=== PATIENT | female | born 1975 | race Caucasian/White ===

== ENCOUNTER 2017-09-11 09:32 | Emergency (ER) | payer MEDICARE, MEDICAID ==
[2017-09-11] MEDS ORDERED: Morphine 10 MG/ML Syringe IM ONE (10:10)
[2017-09-11] MEDS ORDERED: Cyclobenzaprine 10 MG Tab PO ONE (10:11)
[2017-09-11] MEDS ORDERED: Morphine 10 MG/ML Syringe ONE (10:15)
[2017-09-11] MEDS ORDERED: Cyclobenzaprine 10 MG Tab ONE (10:16)
--- NOTE | 2017-09-11 10:18 | EDM.PDOC ---
ED HPI GENERAL MEDICAL PROBLEM - General Chief Complaint: Back Pain or Injury Stated Complaint: BACK PAIN Time Seen by Provider: 09/11/17 09:38 Source of Information: Reports: Patient History Limitations: Reports: No Limitations - History of Present Illness INITIAL COMMENTS - FREE TEXT/NARRATIVE: History of present illness: []Patient was watching a parade yesterday and standing when she felt sudden sharp pain in her low back. She took Tylenol when she got home at noon and took a hot bath. Her dose of Tylenol prior to bed and awoke with worsening pain. She denies any numbness tingling, pain radiating down her legs or urinary incontinence. Review of systems: As per history of present illness and below otherwise all systems reviewed and negative. Past medical history: As per history of present illness and as reviewed below otherwise noncontributory. Surgical history: As per history of present illness and as reviewed below otherwise noncontributory. Social history: No reported history of drug or alcohol abuse. Family history: As per history of present illness and as reviewed below otherwise noncontributory. Physical exam: General: Well developed, well nourished in NAD HEENT: Atraumatic, normocephalic, pupils reactive, negative for conjunctival pallor or scleral icterus, mucous membranes moist, throat clear, neck supple, nontender, trachea midline. Lungs: Clear to auscultation, breath sounds equal bilaterally, chest nontender. Heart: S1S2, regular, negative for clicks, rubs, or JVD. Abdomen: Soft, nondistended, nontender. Negative for masses or hepatosplenomegaly. Negative for costovertebral tenderness. Pelvis: Stable nontender. Genitourinary: Deferred. Rectal: Deferred. Extremities: Atraumatic, negative for cords or calf pain. Neurovascular unremarkable. Neuro: Awake, alert, oriented. Cranial nerves II through XII unremarkable. Cerebellum unremarkable. Motor and sensory unremarkable throughout. Exam nonfocal. Back: Tenderness throughout her lower back though specific vertebral tenderness. Diagnostics: [] Therapeutics: []Morphine and Flexeril Impression: []Lumbar strain Plan: []Diclofenac Flexeril, ice to back follow-up with primary care as needed. Definitive disposition and diagnosis as appropriate pending reevaluation and review of above. lower back Pain Score (Numeric/FACES): 10 - Related Data Allergies Allergy/AdvReac Type Severity Reaction Status Date / Time ketorolac [From Toradol] Allergy Airway Verified 09/11/17 09:41 Tightness pentazocine [From Talwin] Allergy Airway Verified 09/11/17 09:41 Tightness tigecycline Allergy Hives Verified 09/11/17 09:41 tramadol Allergy Airway Verified 09/11/17 09:41 Tightness Home Meds: Home Meds Albuterol Sulfate [Proair Hfa] 1 dose INH ASDIRECTED PRN 09/11/17 [History] Budesonide/Formoterol Fumarate [Symbicort 160-4.5 Mcg Inhaler] 1 inh PO ASDIRECTED PRN 09/11/17 [History] Cyclobenzaprine [Flexeril] 10 mg PO BID PRN #12 tab 09/11/17 [Rx] Diclofenac Sodium [IJD: Diclofenac Sodium] 75 mg PO .TWICE DAILY W MEALS PRN # 20 tab.ec 09/11/17 [Rx] Past Medical History HEENT History: Reports: Impaired Vision Cardiovascular History: Reports: Other (See Below) 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 Respiratory History: Reports: Asthma Gastrointestinal History: Reports: None Genitourinary History: Reports: None 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: Musculoskeletal History: Reports: Back Pain, Chronic Neurological History: Reports: Other (See Below) Other Neuro History: Epilipsy Psychiatric History: Reports: None Endocrine/Metabolic History: Reports: None Hematologic History: Reports: None Immunologic History: Reports: None Oncologic (Cancer) History: Reports: None Dermatologic History: Reports: None - Infectious Disease History Infectious Disease History: Reports: Chicken Pox - Past Surgical History Head Surgeries/Procedures: Reports: None HEENT Surgical History: Reports: None Cardiovascular Surgical History: Reports: None Respiratory Surgical History: Reports: None GI Surgical History: Reports: None Female Surgical History: Reports: Section Endocrine Surgical History: Reports: None Neurological Surgical History: Reports: None Musculoskeletal Surgical History: Reports: Other (See Below) Oncologic Surgical History: Reports: None Dermatological Surgical History: Reports: None Social & Family History - Family History Family Medical History: Noncontributory - Tobacco Use Smoking Status *Q: Never Smoker Second Hand Smoke Exposure: Yes - Caffeine Use Caffeine Use: Reports: Coffee, Soda - Recreational Drug Use Recreational Drug Use: No ED ROS GENERAL - Review of Systems Review Of Systems: See Below (See history of present illness) ED EXAM,LOWER BACK PAIN/INJURY - Physical Exam Exam: See Below (See history of present illness) Course - Vital Signs Last Recorded V/S: Last Vital Signs Temp 97.3 F 09/11/17 09:43 Pulse 83 09/11/17 09:43 Resp 22 H 09/11/17 09:43 BP 144/74 H 09/11/17 09:43 Pulse Ox 99 09/11/17 09:43 - Orders/Labs/Meds Meds: Medications Discontinued Medications Generic Name Dose Route Start Last Admin Trade Name Freq PRN Reason Stop Dose Admin Cyclobenzaprine HCl 10 mg 09/11/17 10:11 09/11/17 10:18 Flexeril PO 09/11/17 10:12 10 mg ONETIME ONE Administration Cyclobenzaprine HCl Confirm 09/11/17 10:16 Flexeril Administered 09/11/17 10:17 Dose 10 mg .ROUTE .STK-MED ONE Morphine Sulfate 6 mg 09/11/17 10:10 09/11/17 10:18 Morphine IM 09/11/17 10:11 6 mg ONETIME ONE Administration Morphine Sulfate Confirm 09/11/17 10:15 Morphine Administered 09/11/17 10:16 Dose 10 mg .ROUTE .STK-MED ONE Departure - Departure Time of Disposition: 10:51 Disposition: Home, Self-Care 01 Condition: Good Clinical Impression: Lumbar strain Qualifiers: Encounter type: initial encounter Qualified Code(s): S39.012A - Strain of muscle, fascia and tendon of lower back, initial encounter - Discharge Information Prescriptions: Cyclobenzaprine [Flexeril] 10 mg PO BID PRN #12 tab PRN Reason: Pain Diclofenac Sodium [IJD: Diclofenac Sodium] 75 mg PO .TWICE DAILY W MEALS PRN # 20 tab.ec PRN Reason: Pain Referrals: PCP,Unknown [Primary Care Provider] - Forms: ED Department Discharge Additional Instructions: The following information is given to patients seen in the emergency department who are being discharged to home. This information is to outline your options for follow-up care. We provide all patients seen in our emergency department with a follow-up referral. The need for follow-up, as well as the timing and circumstances, are variable depending upon the specifics of your emergency department visit. If you don't have a primary care physician on staff, we will provide you with a referral. We always advise you to contact your personal physician following an emergency department visit to inform them of the circumstance of the visit and for follow-up with them and/or the need for any referrals to a consulting specialist. The emergency department will also refer you to a specialist when appropriate. This referral assures that you have the opportunity for follow-up care with a specialist. All of these measure are taken in an effort to provide you with optimal care, which includes your follow-up. Under all circumstances we always encourage you to contact your private physician who remains a resource for coordinating your care. When calling for follow-up care, please make the office aware that this follow-up is from your recent emergency room visit. If for any reason you are refused follow-up, please contact the [facility] Emergency Department at and asked to speak to the emergency department charge nurse. Flexeril, diclofenac, ice your back follow-up with primary care request physical therapy.
== END 2017-09-11 11:01 | disposition home or self-care (01) ==
LOC: MW.ED 09:32
DX: S39.012A Strain of muscle, fascia and tendon of lower back, initial encounter (principal); Z88.6 Allergy status to analgesic agent; Z88.5 Allergy status to narcotic agent; Z88.1 Allergy status to other antibiotic agents; X58.XXXA Exposure to other specified factors, initial encounter
CPT/HCPCS: 96372; 99283; A9270; J2270

== ENCOUNTER 2020-10-21 21:38 | Emergency (ER) | payer MEDICARE, MEDICAID ==
[2020-10-21] MEDS ORDERED: Sodium Chloride 0.9% 2.5 ML Syringe FLUSH PRN (21:49)
[2020-10-21] MEDS ORDERED: Sodium Chloride 0.9% 10 ML Syringe FLUSH PRN (21:49)
[2020-10-21] MEDS ORDERED: Sodium Chloride 0.9% 1,000 ML IV ONE (21:51)
[2020-10-21] MEDS ORDERED: Ondansetron 4 MG/2 ML SDV IVPUSH ONE (21:52)
--- NOTE | 2020-10-21 21:54 | EDM.PDOC ---
ED HPI GENERAL MEDICAL PROBLEM - General Chief Complaint: Back Pain or Injury Stated Complaint: BACK PAIN Time Seen by Provider: 10/21/20 21:44 - History of Present Illness INITIAL COMMENTS - FREE TEXT/NARRATIVE: History of present illness: [] Patient had back pain started 7 AM yesterday with nausea starting at 730. She vomited twice since. Its constant severe pain in the low back. It radiates to the anterior abdomen and across the abdomen. It radiates from the left hip to the right hip. Both hips are involved. She is not sure if she is . She has no systemic signs of infection. Review of systems: As per history of present illness and below otherwise all systems reviewed and negative. Past medical history: As per history of present illness and as reviewed below otherwise noncontributory. Surgical history: As per history of present illness and as reviewed below otherwise noncontributory. Social history: No reported history of drug or alcohol abuse. Family history: As per history of present illness and as reviewed below otherwise noncontributory. Physical exam: Constitutional - well developed, well-nourished and in no acute distress HEENT - normocephalic, no evidence of trauma - external nose and mouth normal - no mass in neck and no JVD - mucosae moist EYES - full EOM, PERRL, no icterus - no evidence of inflammation, injection, or drainage Respiratory - no respiratory distress, equal bilateral expansion, lungs clear to auscultation and no abnormal lung sounds Cardiovascular - Regular Rhythm with S1 and S2 appreciated and no murmur, gallop or rub. GI - abdomen soft without distension or organomegaly - normal bowel sounds - no guard or rebound Musculoskeletal straight leg raise negative for radicular pain-tender in the lowest bed lumbar area-no gross deformity of long bones or joints - no tenderness, swelling or edema Neurologic - Alert and oriented times four - CN II-XII grossly intact - motor sensory and coordination symmetrically normal Psychiatric - appropriate mood and affect with normal thought content Hematologic - No petechiae or purpura - mucosa appropriate color and sclera not pale - normal nail bed color and refill Integument - no rash or evidence of trauma - normal turgor Diagnostics: [] Therapeutics: [] Impression: [] Plan: [] Definitive disposition and diagnosis as appropriate pending reevaluation and review of above. back pain Pain Score (Numeric/FACES): 10 - Related Data Allergies Allergy/AdvReac Type Severity Reaction Status Date / Time ketorolac [From Toradol] Allergy Airway Verified 10/21/20 21:43 Tightness pentazocine [From Talwin] Allergy Airway Verified 10/21/20 21:43 Tightness tigecycline Allergy Hives Verified 10/21/20 21:43 tramadol Allergy Airway Verified 10/21/20 21:43 Tightness Home Meds: Home Meds Albuterol Sulfate [Proair Hfa] 1 dose INH ASDIRECTED PRN 09/11/17 [History] Budesonide/Formoterol Fumarate [Symbicort 160-4.5 Mcg Inhaler] 1 inh PO ASDIRECTED PRN 09/11/17 [History] Past Medical History HEENT History: Reports: Impaired Vision Cardiovascular History: Reports: Other (See Below) 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 Respiratory History: Reports: Asthma Gastrointestinal History: Reports: None Genitourinary History: Reports: None 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: Musculoskeletal History: Reports: Back Pain, Chronic Neurological History: Reports: Other (See Below) Other Neuro History: Epilipsy Psychiatric History: Reports: None Endocrine/Metabolic History: Reports: None Hematologic History: Reports: None Immunologic History: Reports: None Oncologic (Cancer) History: Reports: None Dermatologic History: Reports: None - Infectious Disease History Infectious Disease History: Reports: Chicken Pox - Past Surgical History Head Surgeries/Procedures: Reports: None HEENT Surgical History: Reports: None Cardiovascular Surgical History: Reports: None Respiratory Surgical History: Reports: None GI Surgical History: Reports: None Female Surgical History: Reports: Section Endocrine Surgical History: Reports: None Neurological Surgical History: Reports: None Musculoskeletal Surgical History: Reports: Other (See Below) Oncologic Surgical History: Reports: None Dermatological Surgical History: Reports: None Social & Family History - Family History Family Medical History: No Pertinent Family History - Caffeine Use Caffeine Use: Reports: Coffee, Soda ED ROS GENERAL - Review of Systems Review Of Systems: Comprehensive ROS is negative, except as noted in HPI. ED EXAM, GENERAL - Physical Exam Exam: See Below Free Text/Narrative:: History of present illness: History of present illness: [] My history and physical is in the HPI Review of systems: As per history of present illness and below otherwise all systems reviewed and negative. Past medical history: As per history of present illness and as reviewed below otherwise noncontributory. Surgical history: As per history of present illness and as reviewed below otherwise noncontributory. Social history: No reported history of drug or alcohol abuse. Family history: As per history of present illness and as reviewed below otherwise noncontributory. Physical exam: Constitutional - well developed, well-nourished and in no acute distress HEENT - normocephalic, no evidence of trauma - external nose and mouth normal - no mass in neck and no JVD - mucosae moist EYES - full EOM, PERRL, no icterus - no evidence of inflammation, injection, or drainage Respiratory - no respiratory distress, equal bilateral expansion, lungs clear to auscultation and no abnormal lung sounds Cardiovascular - Regular Rhythm with S1 and S2 appreciated and no murmur, gallop or rub. GI - abdomen soft without distension or organomegaly - normal bowel sounds - no guard or rebound Musculoskeletal no gross deformity of long bones or joints - no tenderness, swelling or edema Neurologic - Alert and oriented times four - CN II-XII grossly intact - motor sensory and coordination symmetrically normal Psychiatric - appropriate mood and affect with normal thought content Hematologic - No petechiae or purpura - mucosa appropriate color and sclera not pale - normal nail bed color and refill Integument - no rash or evidence of trauma - normal turgor Diagnostics: [] Therapeutics: [] Impression: [] Plan: [] Definitive disposition and diagnosis as appropriate pending reevaluation and review of above. Is in the HPI Review of systems: As per history of present illness and below otherwise all systems reviewed and negative. Past medical history: As per history of present illness and as reviewed below otherwise noncontributory. Surgical history: As per history of present illness and as reviewed below otherwise noncontributory. Social history: No reported history of drug or alcohol abuse. Family history: As per history of present illness and as reviewed below otherwise noncontributory. Physical exam: Constitutional - well developed, well-nourished and in no acute distress HEENT - normocephalic, no evidence of trauma - external nose and mouth normal - no mass in neck and no JVD - mucosae moist EYES - full EOM, PERRL, no icterus - no evidence of inflammation, injection, or drainage Respiratory - no respiratory distress, equal bilateral expansion, lungs clear to auscultation and no abnormal lung sounds Cardiovascular - Regular Rhythm with S1 and S2 appreciated and no murmur, gallop or rub. GI - abdomen soft without distension or organomegaly - normal bowel sounds - no guard or rebound Musculoskeletal no gross deformity of long bones or joints - no tenderness, swelling or edema Neurologic - Alert and oriented times four - CN II-XII grossly intact - motor sensory and coordination symmetrically normal Psychiatric - appropriate mood and affect with normal thought content Hematologic - No petechiae or purpura - mucosa appropriate color and sclera not pale - normal nail bed color and refill Integument - no rash or evidence of trauma - normal turgor Diagnostics: [] Therapeutics: [] Impression: [] Plan: [] Definitive disposition and diagnosis as appropriate pending reevaluation and review of above. Course - Vital Signs Text/Narrative:: 0156 hrs. patient turned out to have an infection and obstructing proximal stone in the ureter. Discussed with Dr. Upton and Chinyere and she wants the patient transferred for stenting. Discussed with Dr. Epps he accepted the patient. Last Recorded V/S: Last Vital Signs Temp 37.7 C 10/22/20 01:54 Pulse 112 H 10/22/20 01:54 Resp 18 10/22/20 01:54 BP 112/66 10/22/20 01:54 Pulse Ox 97 10/22/20 01:54 - Orders/Labs/Meds Orders: Active Orders 24 hr Category Date Time Status CULTURE URINE [MREF] Stat Lab 10/22/20 00:00 Received Sodium Chloride 0.9% [Saline Flush] Med 10/21/20 21:49 Active 10 ml FLUSH ASDIRECTED PRN Sodium Chloride 0.9% [Saline Flush] Med 10/21/20 21:49 Active 2.5 ml FLUSH ASDIRECTED PRN Saline Lock Insert [OM.PC] Stat Oth 10/21/20 21:50 Ordered Medication Orders Sodium Chloride (Sodium Chloride 0.9% 10 Ml Syringe) 10 ml FLUSH ASDIRECTED PRN PRN Reason: Keep Vein Open Last Admin: 10/21/20 22:55 Dose: 10 ml Documented by: HILDA Sodium Chloride (Sodium Chloride 0.9% 2.5 Ml Syringe) 2.5 ml FLUSH ASDIRECTED PRN PRN Reason: Keep Vein Open Last Admin: 10/21/20 22:55 Dose: 2.5 ml Documented by: HILDA Labs: Laboratory Tests 10/21/20 10/21/20 10/21/20 Range/Units 22:07 22:07 22:07 WBC 12.74 H (4.0-11.0) K/uL RBC 4.58 (4.30-5.90) M/uL Hgb 13.7 (12.0-16.0) g/dL Hct 39.9 (36.0-46.0) % MCV 87.1 (80.0-98.0) fL MCH 29.9 (27.0-32.0) pg MCHC 34.3 (31.0-37.0) g/dL RDW Std Deviation 41.8 (28.0-62.0) fl RDW Coeff of Yakelin 13 (11.0-15.0) % Plt Count 289 (150-400) K/uL MPV 9.60 (7.40-12.00) fL Neut % (Auto) 87.5 H (48.0-80.0) % Lymph % (Auto) 5.4 L (16.0-40.0) % [place] % (Auto) 6.7 (0.0-15.0) % Eos % (Auto) 0.2 (0.0-7.0) % Baso % (Auto) 0.2 (0.0-1.5) % Neut # (Auto) 11.2 H (1.4-5.7) K/uL Lymph # (Auto) 0.7 (0.6-2.4) K/uL Marathon # (Auto) 0.9 H (0.0-0.8) K/uL Eos # (Auto) 0.0 (0.0-0.7) K/uL Baso # (Auto) 0.0 (0.0-0.1) K/uL Nucleated RBC % 0.0 /100WBC Nucleated RBCs # 0 K/uL Sodium 136 (136-145) mmol/L Potassium 3.7 (3.5-5.1) mmol/L Chloride 99 (98-107) mmol/L Carbon Dioxide 26.5 (21.0-32.0) mmol/L BUN 11 (7.0-18.0) mg/dL Creatinine 1.0 (0.6-1.0) mg/dL Est Cr Clr Drug Dosing 67.63 mL/min Estimated GFR (MDRD) 59.4 ml/min Glucose 117 H (74-106) mg/dL Calcium 8.7 (8.5-10.1) mg/dL Total Bilirubin 1.0 (0.2-1.0) mg/dL AST 13 L (15-37) IU/L ALT 21 (14-63) IU/L Alkaline Phosphatase 74 (46-116) U/L Total Protein 7.8 (6.4-8.2) g/dL Albumin 3.5 (3.4-5.0) g/dL Globulin 4.3 H (2.6-4.0) g/dL Albumin/Globulin Ratio 0.8 L (0.9-1.6) Lipase 40 L (73-393) U/L HCG, Qual NEGATIVE (NEG) Urine Color Urine Appearance Urine pH (5.0-8.0) Ur Specific [place] (1.001-1.035) Urine Protein (NEGATIVE) mg/dL Urine Glucose (UA) (NEGATIVE) mg/dL Urine Ketones (NEGATIVE) mg/dL Urine Occult Blood (NEGATIVE) Urine Nitrite (NEGATIVE) Urine Bilirubin (NEGATIVE) Urine Urobilinogen (<2.0) EU/dL Ur Leukocyte Esterase (NEGATIVE) Urine RBC (0-2/HPF) Urine WBC (0-5/HPF) Ur Epithelial Cells (NONE-FEW) Urine Bacteria (NEGATIVE) Urine Mucus (NONE-MOD) 10/21/20 Range/Units 23:44 WBC (4.0-11.0) K/uL RBC (4.30-5.90) M/uL Hgb (12.0-16.0) g/dL Hct (36.0-46.0) % MCV (80.0-98.0) fL MCH (27.0-32.0) pg MCHC (31.0-37.0) g/dL RDW Std Deviation (28.0-62.0) fl RDW Coeff of Yakelin (11.0-15.0) % Plt Count (150-400) K/uL MPV (7.40-12.00) fL Neut % (Auto) (48.0-80.0) % Lymph % (Auto) (16.0-40.0) % Marathon % (Auto) (0.0-15.0) % Eos % (Auto) (0.0-7.0) % Baso % (Auto) (0.0-1.5) % Neut # (Auto) (1.4-5.7) K/uL Lymph # (Auto) (0.6-2.4) K/uL Marathon # (Auto) (0.0-0.8) K/uL Eos # (Auto) (0.0-0.7) K/uL Baso # (Auto) (0.0-0.1) K/uL Nucleated RBC % /100WBC Nucleated RBCs # K/uL Sodium (136-145) mmol/L Potassium (3.5-5.1) mmol/L Chloride (98-107) mmol/L Carbon Dioxide (21.0-32.0) mmol/L BUN (7.0-18.0) mg/dL Creatinine (0.6-1.0) mg/dL Est Cr Clr Drug Dosing mL/min Estimated GFR (MDRD) ml/min Glucose (74-106) mg/dL Calcium (8.5-10.1) mg/dL Total Bilirubin (0.2-1.0) mg/dL AST (15-37) IU/L ALT (14-63) IU/L Alkaline Phosphatase (46-116) U/L Total Protein (6.4-8.2) g/dL Albumin (3.4-5.0) g/dL Globulin (2.6-4.0) g/dL Albumin/Globulin Ratio (0.9-1.6) Lipase (73-393) U/L HCG, Qual (NEG) Urine Color YELLOW Urine Appearance SLT CLOUDY Urine pH 7.0 (5.0-8.0) Ur Specific [place] 1.015 (1.001-1.035) Urine Protein 30 H (NEGATIVE) mg/dL Urine Glucose (UA) NEGATIVE (NEGATIVE) mg/dL Urine Ketones 40 H (NEGATIVE) mg/dL Urine Occult Blood TRACE-LYSED H (NEGATIVE) Urine Nitrite POSITIVE H (NEGATIVE) Urine Bilirubin NEGATIVE (NEGATIVE) Urine Urobilinogen 4.0 H (<2.0) EU/dL Ur Leukocyte Esterase MODERATE H (NEGATIVE) Urine RBC 1-3 (0-2/HPF) Urine WBC 10-20 (0-5/HPF) Ur Epithelial Cells FEW (NONE-FEW) Urine Bacteria 3+ H (NEGATIVE) Urine Mucus LIGHT (NONE-MOD) Meds: Medications Generic Name Dose Route Start Last Admin Trade Name Freq PRN Reason Stop Dose Admin Sodium Chloride 10 ml 10/21/20 21:49 10/21/20 22:55 Sodium Chloride 0.9% 10 Ml Syringe FLUSH 10 ml ASDIRECTED PRN Administration Keep Vein Open Sodium Chloride 2.5 ml 10/21/20 21:49 10/21/20 22:55 Sodium Chloride 0.9% 2.5 Ml Syringe FLUSH 2.5 ml ASDIRECTED PRN Administration Keep Vein Open Discontinued Medications Generic Name Dose Route Start Last Admin Trade Name Freq PRN Reason Stop Dose Admin Diazepam 5 mg 10/21/20 23:37 10/22/20 00:23 Diazepam 2 Mg Tab PO 10/21/20 23:38 5 mg ONETIME ONE Administration Sodium Chloride 1,000 mls @ 1,000 mls/hr 10/21/20 21:51 10/21/20 22:19 Normal Saline IV 10/21/20 22:50 1,000 mls/hr .Bolus ONE Administration Ceftriaxone Sodium/Dextrose 1 50 mls @ 100 mls/hr 10/22/20 01:02 10/22/20 01:13 gm/ Premix IV 10/22/20 01:31 100 mls/hr ONETIME ONE Administration Morphine Sulfate 4 mg 10/21/20 22:41 10/21/20 22:55 Morphine 4 Mg/Ml Syringe IVPUSH 10/21/20 22:42 4 mg ONETIME ONE Administration Ondansetron HCl 4 mg 10/21/20 21:52 10/21/20 22:21 Ondansetron 4 Mg/2 Ml Sdv IVPUSH 10/21/20 21:53 4 mg ONETIME ONE Administration Oxycodone/Acetaminophen 1 tab 10/21/20 23:37 10/22/20 00:25 Acetaminophen/Oxycodone 325-10 Mg Tab PO 10/21/20 23:38 1 tab ONETIME ONE Administration Departure - Departure Time of Disposition: 01:57 Disposition: DC/Tfer to Acute Hospital 02 Condition: Good Clinical Impression: Ureteral stone with hydronephrosis, UTI (urinary tract infection) - Discharge Information Forms: ED Department Discharge Additional Instructions: You have been accepted for care by the emergency physician Dr. Epps and the urologist Dr. Upton in [place]. Please have someone drive you safely there. Sepsis Event Note (ED) - Evaluation Sepsis Screening Result: No Definite Risk - Focused Exam Vital Signs: Vital Signs Temp Pulse Resp BP Pulse Ox 10/22/20 01:54 37.7 C 112 H 18 112/66 97 10/22/20 01:15 36.9 C 108 H 18 111/71 95 10/21/20 23:00 112 H 18 116/72 95 10/21/20 21:40 36.4 C 120 H 18 130/70 97 - My Orders Last 24 Hours: My Active Orders 10/21/20 21:49 Sodium Chloride 0.9% [Saline Flush] 10 ml FLUSH ASDIRECTED PRN Sodium Chloride 0.9% [Saline Flush] 2.5 ml FLUSH ASDIRECTED PRN 10/21/20 21:50 Saline Lock Insert [OM.PC] Stat 10/22/20 00:00 CULTURE URINE [MREF] Stat - Assessment/Plan Last 24 Hours: My Active Orders 10/21/20 21:49 Sodium Chloride 0.9% [Saline Flush] 10 ml FLUSH ASDIRECTED PRN Sodium Chloride 0.9% [Saline Flush] 2.5 ml FLUSH ASDIRECTED PRN 10/21/20 21:50 Saline Lock Insert [OM.PC] Stat 10/22/20 00:00 CULTURE URINE [MREF] Stat
[2020-10-21 22:35] LABS: CARBON DIOXIDE,CO2 26.5 mmol/L (21.0-32.0); POTASSIUM,K 3.7 mmol/L (3.5-5.1)
[2020-10-21] MEDS ORDERED: Morphine 4 MG/ML Syringe IVPUSH ONE (22:41)
[2020-10-21] MEDS ORDERED: Acetaminophen/oxyCODONE 325-10 MG Tab PO ONE (23:37)
[2020-10-21] MEDS ORDERED: Diazepam 2 MG Tab PO ONE (23:37)
--- NOTE | 2020-10-22 00:43 | CT ---
INDICATION: Left flank pain TECHNIQUE: CT abdomen and pelvis without contrast. COMPARISON: None available FINDINGS: Lower chest: Mild mosaic attenuation, probably related to minor compressive changes with foci of air trapping. A small hiatal hernia. Liver: Hepatic steatosis. Spleen: Mild splenomegaly measuring 14 cm craniocaudally. Pancreas: Unremarkable. Gallbladder and bile ducts: A moderately distended gallbladder. Adrenal glands: Unremarkable. Kidneys: Mild left hydronephrosis with a 6 x 4 mm calculus in the proximal to mid ureter at the L4 level. GI tract: Unremarkable. Appendix is normal. Vascular structures: Unremarkable. Lymph nodes: Unremarkable. Miscellaneous: No significant free fluid or free air. A small fat containing umbilical hernia. Pelvic Organs: Probably physiologic prominence of the uterine endometrium. Small uterine fundal lobulations could represent myomatous changes. No bladder calcifications. Bones: Unremarkable for age. IMPRESSION: Mild left obstructive uropathy due to a 6 mm proximal to mid ureteral calculus. Hepatic steatosis, mild splenomegaly. Please note that all CT scans at this facility use dose modulation, iterative reconstruction, and/or weight-based dosing when appropriate to reduce radiation dose to as low as reasonably achievable. Dictated by J Luis Yap MD @ 10/22/2020 12:41:[address] J Luis Yap @ Oct 22 2020 12:41AM
[2020-10-22] MEDS ORDERED: cefTRIAXone 1 GM in Premix Bag 1 BAG IV ONE (01:02)
== END 2020-10-22 02:07 ==
LOC: MW.ED 21:38
DX: N13.6 Pyonephrosis (principal); J45.909 Unspecified asthma, uncomplicated; Z88.5 Allergy status to narcotic agent; Z88.8 Allergy status to other drugs, medicaments and biological substances; Z79.899 Other long term (current) drug therapy; Z88.1 Allergy status to other antibiotic agents
CPT/HCPCS: 36415; 74176; 80053; 81001; 83690; 84703; 85025; 87086; 96365; 96375; 99285; A9270; J0696; J2270; J2405; J7030; 87088; 87186

== ENCOUNTER 2021-01-04 23:29 | Emergency (ER) | payer MEDICARE, MEDICAID ==
[2021-01-05] MEDS ORDERED: Morphine 4 MG/ML Syringe IM ONE (02:55)
[2021-01-05] MEDS ORDERED: Lidocaine 5% 700 MG Patch TRDERM ONE (02:55)
--- NOTE | 2021-01-05 03:58 | CR ---
INDICATION: After hitting the left hip. COMPARISON: None available. FINDINGS: The left hip was examined with AP and frogleg lateral views. An AP view of the pelvis is obtained for a total of three views. There is no sign of fracture or dislocation of the left hip. A small rounded ossification seen adjacent to the lateral superior margin of the acetabulum is consistent with previous soft tissue injury. The left femoral head and acetabulum are in anatomic alignment. No degenerative disease is seen of the left hip. The right hip is unremarkable. The SI joints and pubic symphysis are normal in appearance. The rest of the bony pelvis and soft tissues are normal in appearance. IMPRESSION: No sign of acute osseous injury to the left hip or pelvis. Dictated by Fabian May MD @ 01/05/2021 3:55:50 AM (Electronically Signed)
--- NOTE | 2021-01-05 04:05 | EDM.PDOC ---
ED HPI GENERAL MEDICAL PROBLEM - General Chief Complaint: Back Pain or Injury Stated Complaint: LT HIP AND BACK PAIN Time Seen by Provider: 01/05/21 02:51 - History of Present Illness INITIAL COMMENTS - FREE TEXT/NARRATIVE: HISTORY AND PHYSICAL: History of present illness: This is a 45-year-old female who presents ER today secondary to pain and discomfort to her left hip after bumping it up against a cement. Patient reports that she has been able to weight-bear but with a significant amount of pain and discomfort. Patient reports that this occurred approximately 5 PM and she been applying heat to the area without any significant improvement. Patient denies any recent fevers, shakes, chills, nausea, vomiting, diarrhea. Review of systems: As per history of present illness and below otherwise all systems reviewed and negative. Past medical history: As per history of present illness and as reviewed below otherwise noncontributory. Surgical history: As per history of present illness and as reviewed below otherwise noncontributory. Social history: No reported history of drug abuse. Family history: As per history of present illness and as reviewed below otherwise noncontributory. Physical exam: This patient was seen and evaluated during the 2019 SARS-CoV-2 novel coronavirus pandemic period. Community viral transmission is ongoing at time of this encounter and the emergency department is operating under pandemic response procedures. Constitutional: Patient is oriented to person, place, and time. Appears well- developed and well-nourished. No distress. HEENT: Moist mucous membranes Head: Normocephalic and atraumatic Eyes: Right eye exhibits no discharge. Left eye exhibits no discharge. No scleral icterus Neck: Normal range of motion. No tracheal deviation present. Cardiovascular: Normal rate and regular rhythm. Pulmonary: Effort normal, no respiratory distress. Abdominal: No distention Musculoskeletal: Normal range of motion Neurologic: Alert and oriented to person, place and time. Skin: [place], warm and dry. Psychiatric: Normal mood and affect. Behavior is normal. Judgment and thought content normal. Nursing note and vital signs have been reviewed Patient has tenderness palpation over her left iliac crest and gluteal region. Patient has full range of motion. Patient is able to weight-bear. Patient also some mild tenderness to palpation to her sacral region. Diagnostics: X-ray left hip negative for any acute fracture as interpreted by radiology and reviewed by me. Therapeutics: Lidocaine patch, morphine Assessment and plan: 45-year-old presents ER today secondary to pain to her left hip. Patient's x- rays negative for any acute fracture. Patient has been able to weight-bear. Patient does not present with clinical findings consistent with a left hip fracture. Patient has been given morphine IM in the ED as well as a lidocaine patch. Patient be discharged home with prescription for Lidoderm patches and to continue with her usual pain medicines at home. Reassessment at the time of disposition demonstrates that the patient is in no acute distress. The patient has remained stable throughout the entire ED visit and is without objective ev idence for acute process requiring urgent intervention or hospitalization. The patient is stable for discharge, counseling is provided as documented above, discussed symptomatic treatment and specific conditions for return. I have spoken with the patient/caregiver and discussed todays findings, in addition to providing specific details for the plan of care. Questions are answered and there is agreement with the plan. Definitive disposition and diagnosis as appropriate pending reevaluation and review of above. Left Hip Pain Score (Numeric/FACES): 10 - Related Data Allergies Allergy/AdvReac Type Severity Reaction Status Date / Time ketorolac [From Toradol] Allergy Airway Verified 10/21/20 21:43 Tightness pentazocine [From Talwin] Allergy Airway Verified 10/21/20 21:43 Tightness tigecycline Allergy Hives Verified 10/21/20 21:43 tramadol Allergy Airway Verified 10/21/20 21:43 Tightness Home Meds: Home Meds Albuterol Sulfate [Proair Hfa] 1 dose INH ASDIRECTED PRN 09/11/17 [History] Budesonide/Formoterol Fumarate [Symbicort 160-4.5 Mcg Inhaler] 1 inh PO ASDIRECTED PRN 09/11/17 [History] Lidocaine 5% [Lidoderm 5%] 1 patch TOP DAILY PRN #7 patch 01/05/21 [Rx] Past Medical History HEENT History: Reports: Impaired Vision Cardiovascular History: Reports: Other (See Below) 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 Respiratory History: Reports: Asthma Gastrointestinal History: Reports: None Genitourinary History: Reports: None RIGGER UP History: Reports: Musculoskeletal History: Reports: Back Pain, Chronic Neurological History: Reports: Other (See Below) Other Neuro History: Epilepsy Psychiatric History: Reports: None Endocrine/Metabolic History: Reports: None Insulin Pump Model and Rn Clinical Resource: None Hematologic History: Reports: None Immunologic History: Reports: None Oncologic (Cancer) History: Reports: None Dermatologic History: Reports: None - Infectious Disease History Infectious Disease History: Reports: Chicken Pox - Past Surgical History Head Surgeries/Procedures: Reports: None HEENT Surgical History: Reports: None Cardiovascular Surgical History: Reports: None Respiratory Surgical History: Reports: None GI Surgical History: Reports: None Female Surgical History: Reports: Section Endocrine Surgical History: Reports: None Neurological Surgical History: Reports: None Musculoskeletal Surgical History: Reports: Other (See Below) Other Musculoskeletal Surgeries/Procedures:: Left knee fx. Oncologic Surgical History: Reports: None Dermatological Surgical History: Reports: None Social & Family History - Family History Family Medical History: No Pertinent Family History - Tobacco Use Tobacco Use Status *Q: Never Tobacco User - Caffeine Use Caffeine Use: Reports: None - Recreational Drug Use Recreational Drug Use: No ED ROS GENERAL - Review of Systems Review Of Systems: See Below ED EXAM, GENERAL - Physical Exam Exam: See Below Course - Vital Signs Last Recorded V/S: Last Vital Signs Temp 97.8 F 01/05/21 00:39 Pulse 87 01/05/21 01:48 Resp 14 01/05/21 01:48 BP 137/87 01/05/21 01:48 Pulse Ox 95 01/05/21 01:48 - Orders/Labs/Meds Meds: Medications Discontinued Medications Generic Name Dose Route Start Last Admin Trade Name Eben PRN Reason Stop Dose Admin Lidocaine 700 mg 01/05/21 02:55 01/05/21 03:06 Lidocaine 5% 700 Mg Patch TRDERM 01/05/21 02:56 700 mg ONETIME ONE Administration Morphine Sulfate 4 mg 01/05/21 02:55 01/05/21 03:07 Morphine 4 Mg/Ml Syringe IM 01/05/21 02:56 4 mg ONETIME ONE Administration Departure - Departure Time of Disposition: 04:04 Disposition: Home, Self-Care 01 Condition: Good Clinical Impression: Contusion of left hip Qualifiers: Encounter type: initial encounter Qualified Code(s): S70.02XA - Contusion of left hip, initial encounter - Discharge Information Instructions: Contusion Referrals: PCP,None [Primary Care Provider] - Additional Instructions: You were seen and evaluated today in the ER secondary to pain to her left hip. The x-rays are obtained revealed no acute fracture or abnormalities to your hip. Your pain is most likely secondary to bruising of the muscle and bone in that area. You will be given a prescription for lidocaine patches to use to help with the pain discomfort. You can continue your home pain medicines as needed to assist you with your discomfort. Please apply heat to the area. The following information is given to patients seen in the emergency department who are being discharged to home. This information is to outline your options for follow-up care. We provide all patients seen in our emergency department with a follow-up referral. The need for follow-up, as well as the timing and circumstances, are variable depending upon the specifics of your emergency department visit. If you don't have a primary care physician on staff, we will provide you with a referral. We always advise you to contact your personal physician following an emergency department visit to inform them of the circumstance of the visit and for follow-up with them and/or the need for any referrals to a consulting specialist. The emergency department will also refer you to a specialist when appropriate. This referral assures that you have the opportunity for follow-up care with a specialist. All of these measure are taken in an effort to provide you with optimal care, which includes your follow-up. Under all circumstances we always encourage you to contact your private physician who remains a resource for coordinating your care. When calling for follow-up care, please make the office aware that this follow-up is from your recent emergency room visit. If for any reason you are refused follow-up, please contact the [facility] Emergency Department at and asked to speak to the emergency department charge nurse. Harshal Fariha [facility] - [facility] [address] [place] [id number] [address] Sepsis Event Note (ED) - Focused Exam Vital Signs: Vital Signs Temp Pulse Resp BP Pulse Ox 01/05/21 01:48 87 14 137/87 95 01/05/21 00:39 97.8 F 76 18 146/73 H 97
== END 2021-01-05 04:20 | disposition home or self-care (01) ==
LOC: MW.ED 23:29
DX: S70.02XA Contusion of left hip, initial encounter (principal); J45.909 Unspecified asthma, uncomplicated; Z88.5 Allergy status to narcotic agent; Z88.8 Allergy status to other drugs, medicaments and biological substances; W22.8XXA Striking against or struck by other objects, initial encounter
CPT/HCPCS: 73501; 96372; 99283; A9270; J2270

== ENCOUNTER 2022-11-06 11:19 | Emergency (ER) | payer MEDICARE, MEDICAID | END 2022-11-06 14:42 | disposition home or self-care (01) | LOC: MW.ED 11:19 | DX: M25.572 Pain in left ankle and joints of left foot (principal); J45.909 Unspecified asthma, uncomplicated; Z88.5 Allergy status to narcotic agent; Z88.1 Allergy status to other antibiotic agents; Z79.899 Other long term (current) drug therapy; Z98.890 Other specified postprocedural states; W05.1XXA Fall from non-moving nonmotorized scooter, initial encounter | CPT/HCPCS: 73610-26-LT; 73610-LT; 76881-26-LT; 76881-LT; 99283; 99284 ==

== ENCOUNTER 2024-05-07 15:15 | Emergency (ER) | payer MEDICARE, MEDICAID ==
[2024-05-07] MEDS: Acetaminophen/HYDROcodone 325-5 MG Tab PO ONE (18:23)
== END 2024-05-07 18:30 | disposition home or self-care (01) ==
LOC: MW.ED 15:15
DX: S06.0X0A Concussion without loss of consciousness, initial encounter (principal); Z88.6 Allergy status to analgesic agent; Z88.5 Allergy status to narcotic agent; Z88.1 Allergy status to other antibiotic agents; Z88.8 Allergy status to other drugs, medicaments and biological substances; W00.0XXA Fall on same level due to ice and snow, initial encounter
CPT/HCPCS: 70450; 72125; 73502; 99284; A9270